=== PATIENT | female | born 1975 | race Caucasian/White ===

== ENCOUNTER 2017-05-08 05:58 | Inpatient (IN) | payer BC ==
[2017-05-08] MEDS: LACTATED RINGER'S 1,000 ML IV* ×3 (06:30→22:30)
[2017-05-08] MEDS ORDERED: CEFAZOLIN 2 GM/50 ML (PMX) 50 ML IVPB (06:30)
[2017-05-08] MEDS ORDERED: VASOPRESSIN 20 UNITS INJ (06:51)
[2017-05-08] MEDS ORDERED: SODIUM CL BACTERIOSTATIC 30 ML INJ (06:51)
[2017-05-08] MEDS ORDERED: morphine SULFATE/PF (10 MG/10 ML) INJ (07:23)
[2017-05-08] MEDS ORDERED: FENTAnyl 50 MCG/ML VIAL ×2 (07:23→11:41)
[2017-05-08] MEDS ORDERED: MIDAZOLAM 1 MG/ML 2 ML INJ (07:23)
[2017-05-08] MEDS ORDERED: METOCLOPRAMIDE 10 MG INJ (07:23)
[2017-05-08] MEDS ORDERED: CEFAZOLIN 1 GM INJ (07:34)
[2017-05-08] MEDS ORDERED: PROPOFOL 20 ML (07:34)
[2017-05-08] MEDS ORDERED: KETOROLAC 30 MG INJ (07:40)
[2017-05-08] MEDS ORDERED: ONDANSETRON 4 MG INJ (07:40)
[2017-05-08] MEDS ORDERED: ROCURONIUM 50 MG INJ (08:11)
[2017-05-08] MEDS ORDERED: EPHEDrine SULFATE 50 MG/5 ML SYG ×2 (08:16→10:13)
[2017-05-08] MEDS ORDERED: ACETAMINOPHEN 325 MG TAB PO (11:00)
[2017-05-08] MEDS: LACTATED RINGER'S 1,000 ML IV ×3 (12:20→23:23)
[2017-05-08] MEDS: IBUPROFEN 600 MG TAB PO ×2 (15:20→21:56)
[2017-05-08] MEDS: CEFAZOLIN 2 GM/50 ML (PMX) 50 ML IVPB ×2 (15:20→21:56)
[2017-05-08] MEDS: ONDANSETRON 4 MG INJ IV (22:04)
[2017-05-09] MEDS: LACTATED RINGER'S 1,000 ML IV ×2 (04:06→16:34)
[2017-05-09] MEDS: CEFAZOLIN 2 GM/50 ML (PMX) 50 ML IVPB (05:05)
[2017-05-09] MEDS: IBUPROFEN 600 MG TAB PO ×3 (05:05→21:21)
[2017-05-09 05:20] LABS: ADD MAN DIFF? NO
[2017-05-09 05:25] LABS: BASOPHILS % 0.4 % (0.0-2.0); EOSINOPHILS # 0.1 10^3/ul (0.0-0.5); EOSINOPHILS % 0.7 % (0.0-7.0); HEMATOCRIT 33.7 % (37.0-47.0); LYMPHOCYTES # 2.2 10^3/ul (0.8-2.9); LYMPHOCYTES % 22.7 % (15.0-51.0); MEAN CORPUSCULAR HEMOGLOBIN 27.6 pg (29.0-33.0); MEAN CORPUSCULAR HGB CONC 32.6 g/dl (32.0-37.0); MEAN CORPUSCULAR VOLUME 84.7 fl (82.0-101.0); MEAN PLATELET VOLUME 10.9 fl (7.4-10.4); MONOCYTE # 0.7 10^3/ul (0.3-0.9); MONOCYTES % 6.9 % (0.0-11.0); NEUTROPHIL # 6.6 10^3/ul (1.6-7.5); PLATELET COUNT 238 10^3/UL (140-415); RED BLOOD COUNT 3.98 10^6/ul (4.20-5.40); RED CELL DISTRIBUTION WIDTH 13.3 % (11.5-14.5)
[2017-05-09 05:25] LABS: WHITE BLOOD COUNT 9.6 10^3/ul (4.8-10.8)
[2017-05-09 06:51] LABS: ADD UMIC YES; UR ASCORBIC ACID NEGATIVE (NEGATIVE); UR BILIRUBIN (Dip) NEGATIVE (NEGATIVE); UR BLOOD (Dip) 2+ mg/dL (NEGATIVE); UR CLARITY CLEAR (CLEAR); UR COLOR STRAW (YELLOW); UR GLUCOSE (Dip) NEGATIVE (NEGATIVE); UR KETONES (Dip) NEGATIVE (NEGATIVE); UR LEUKOCYTE ESTERASE (Dip) NEGATIVE Leu/ul (NEGATIVE); UR MUCUS FEW /HPF (NONE SEEN); UR NITRITE (Dip) NEGATIVE (NEGATIVE); UR RBC 2 /HPF (0-5); UR SPECIFIC GRAVITY (Dip) 1.011 (1.003-1.030); UR TOTAL PROTEIN (Dip) NEGATIVE (NEGATIVE); UR UROBILINOGEN (Dip) NEGATIVE (NEGATIVE); UR WBC 1 /HPF (0-5)
[2017-05-09] MEDS: HYDROCODONE/APAP (5/325) TAB PO ×2 (10:00→18:01)
[2017-05-10] MEDS: HYDROCODONE/APAP (5/325) TAB PO ×3 (01:27→17:58)
[2017-05-10] MEDS: LACTATED RINGER'S 1,000 ML IV ×3 (02:34→22:34)
[2017-05-10] MEDS: IBUPROFEN 600 MG TAB PO ×3 (05:49→21:43)
[2017-05-11] MEDS: IBUPROFEN 600 MG TAB PO (05:19)
== END 2017-05-11 10:45 | disposition home or self-care (01) | DRG 743 ==
LOC: REC 05:58 → MS1 12:06
PROC: 0UT90ZZ Resection of Uterus, Open Approach (ICD-10-PCS; principal; 2017-05-08 07:30)
PROC: 0DNW0ZZ Release Peritoneum, Open Approach (ICD-10-PCS; 2017-05-08 07:30)
PROC: 0UT50ZZ Resection of Right Fallopian Tube, Open Approach (ICD-10-PCS; 2017-05-08 07:30)
DX: N80.0 Endometriosis of uterus (principal); N70.11 Chronic salpingitis; N93.9 Abnormal uterine and vaginal bleeding, unspecified; N73.6 Female pelvic peritoneal adhesions (postinfective)
CPT/HCPCS: 81001; 85025; 86850; 86900; 86901; 86920; 87086